=== PATIENT | female | born 1995 | race Caucasian/White ===

== ENCOUNTER 2016-12-07 18:42 | Emergency (ER) | payer BC ==
[2016-12-07] MEDS ORDERED: AMOXICILLIN 250 MG CAPSULE PO ONE (19:31)
--- NOTE | 2016-12-07 19:39 | ER NURSING DOCUMENTATION ---
Nurse's Notes [facility] Name:Scooter Herrera Age:21 yrs Sex:Female :1995 Arrival Date:12/07/2016 Time:18:42 Bed3 Private MD: Diagnosis:Strep Sore Throat Presentation: 12/07 18:51 Acuity: EMYM 4 sc1 19:21 Presenting complaint: Patient states: sorethroat since yesterday. Transition of care: sc1 patient was not received from another setting of care. Notified ED Physician of patient's arrival and CC Dr. Rosenthal notified. 19:21 Method Of Arrival: Private Vehicle sc1 Triage Assessment: 19:22 General: Appears in no apparent distress, well developed, well nourished, well groomed, sc1 Behavior is cooperative, pleasant. Pain: Complains of pain in throat. EENT: Throat is reddened has patchy exudate. Historical: - Allergies: No known drug Allergies; - Home Meds: 1. None - PMHx: None; - PSHx: None; - Ebola Screening: : Patient negative for fever greater than or equal to 101.5 degrees Fahrenheit, and additional compatible Ebola Virus Disease symptoms. Patient denies exposure to infectious person. Patient denies travel to an Ebola-affected area in the 21 days before illness onset. No symptoms or risks identified at this time. . - Immunization history: Flu Vaccine < 1 year. - Social history: Smoking status: Patient states was never smoker of tobacco. Patient/guardian denies using alcohol, street drugs, IV drugs, marijuana. Screenin:37 Infectious Disease Risk None. Abuse screen: Denies threats or abuse. Nutritional sc1 screening: No deficits noted. Assessment: 19:37 Respiratory: Airway Respiratory effort is even, unlabored, Breath sounds are clear sc1 bilaterally. Vital Signs: 18:52 BP 136 / 78; Pulse 106; Resp 16; Temp 99.5(O); Pulse Ox 94% on R/A; Weight 61.23 kg arc (R); Height 5 ft. 4 in. (162.56 cm) (R); Pain 6/10; 18:52 Body Mass Index 23.17 (61.23 kg, 162.56 cm) arc ED Course: 18:45 Patient arrived in ED. ama 18:51 Razo, Sophia, RN is Primary Nurse. [facility] 18:51 Triage completed. [facility] 19:18 Curry Rosenthal MD is Attending Physician. cd 19:23 Notified ED Physician of patient's arrival and chief complaint. Dr. Rosenthal notified. Arm [facility] band placed on Bed in low position Call Light in Reach. Labs ordered per protocol. 19:37 Valuables Remains with patient. [facility] Administered Medications: 19:21 Drug: Amoxicillin 500 mg; Route: PO; [facility] 19:36 Follow up: Response: No adverse reaction [facility] Outcome: 19:19 Discharge ordered by MD. cd 19:36 Discharged to home ambulatory. [facility] 19:36 Condition: stable 19:36 Instructed on discharge instructions, follow up and referral plans. medication usage, Demonstrated understanding of instructions, medications, Prescriptions given X 1. 19:37 Patient left the ED. [facility] 06/ 09:30 Discharge F/U Call: Overall Care on a scale of 1-10 with 10 being the best care, you tg rate our care as: Other comments: Spoke with pt's dad. Pt is still uncomfortable. gave instructions on finding [facility], and they will return to ED if symptoms get worse or for other concerns. Signatures: Sterling Rosado RN RN Sophia Razo, REN RN [facility] Curry Rosenthal MD MD cd Yoni eLvin, Reg Reg ama Jaycee Vogel, Reg Reg arc
--- NOTE | 2016-12-07 19:39 | ER PHYSICIAN DOCUMENTATION ---
Physician Documentation [facility] Name:Scooter Herrera Age:21 yrs Sex:Female :1995 Arrival Date:12/07/2016 Time:18:42 Bed3 Private MD: Curry Pappas Disposition: 12/07/16 19:19 Discharged to Home/Self Care. Impression: Strep Sore Throat. - Condition is Good. - Discharge Instructions: PHARYNGITIS, Strep (Confirmed). - Prescriptions for Amoxicillin 875 mg Oral Tablet - take 1 tablet by ORAL route every 12 hours for 10 days; 20 tablet. - Medical Reconciliation form form. - Follow up: Private Physician; When: 7 - 10 days; Reason: Recheck today's complaints, Continuance of care. - Problem is new. - Symptoms are unchanged. - Notes: Take Ibuprofen 600mg by mouth every 6 hours for 1 - 2 days Take Tylenol 650mg by mouth every 6 hours for1 - 2 days Gargle with salt water......after you have been treated....throw away your toothbrush... Drink plenty of fluids.....2 quarts per day.... Take Amoxil 875mg by mouth every 12 hours starting tomorrow morning for 10 days.... HPI: 12/07 19:05 This 21 yrs old Female presents to ER via Private Vehicle with complaints of cd Sore Throat. 19:05 The patient presents with sore throat. The patient describes throat pain as burning, cd constant. Onset: The symptom(s)/episode began/occurred acutely, yesterday. Severity of symptoms: At their worst the symptoms were moderate, in the emergency department the symptoms are unchanged. Modifying factors: The symptoms are alleviated by nothing, the symptoms are aggravated by swallowing, Patient's oral intake status: good unaware of sick contact. Associated signs and symptoms: Pertinent positives: fever. Historical: - Allergies: No known drug Allergies; - Home Meds: 1. None - PMHx: None; - PSHx: None; - Ebola Screening: : Patient negative for fever greater than or equal to 101.5 degrees Fahrenheit, and additional compatible Ebola Virus Disease symptoms. Patient denies exposure to infectious person. Patient denies travel to an Ebola-affected area in the 21 days before illness onset. No symptoms or risks identified at this time. . - Immunization history: Flu Vaccine < 1 year. - Social history: Smoking status: Patient states was never smoker of tobacco. Patient/guardian denies using alcohol, street drugs, IV drugs, marijuana. ROS: 19:22 Constitutional: Positive for fever, Negative for body aches, chills, poor PO intake. cd 19:22 ENT: Positive for sore throat, Negative for ear pain, rhinorrhea, sinus congestion, sinus pain. 19:22 Neck: Negative for pain with movement, pain at rest. 19:22 Cardiovascular: Negative for chest pain. 19:22 Skin: Negative for rash. 19:22 All other systems are negative. Exam: 19:22 Constitutional: The patient appears alert, awake, non-diaphoretic, non-toxic, well cd developed, well nourished. 19:22 ENT: Mouth: is normal, Posterior pharynx: Airway: normal, no evidence of obstruction, Tonsils: bilaterally enlarged, with erythema, with exudate, peritonsillar mass, is not appreciated, pooling of secretions, is not appreciated. 19:22 Neck: ROM/movement: nuchal rigidity, is not appreciated. 19:22 Respiratory: Respirations: normal, no acute changes, Breath sounds: are normal, clear throughout. Vital Signs: 18:52 BP 136 / 78; Pulse 106; Resp 16; Temp 99.5(O); Pulse Ox 94% on R/A; Weight 61.23 kg arc (R); Height 5 ft. 4 in. (162.56 cm) (R); Pain 6/10; 18:52 Body Mass Index 23.17 (61.23 kg, 162.56 cm) arc MDM: 19:05 Data interpreted: Pulse oximetry: on room air is 94 %. Interpretation: normal. cd Counseling: I had a detailed discussion with the patient and/or guardian regarding: the historical points, exam findings, and any diagnostic results supporting the discharge/admit diagnosis, lab results, the need for outpatient follow up, for a recheck, with the patient's primary care provider, to return to the emergency department if symptoms worsen or persist or if there are any questions or concerns that arise at home. 19:18 Patient medically screened. cd 19:22 Differential diagnosis: group A strep tonsillitis, mononucleosis, tonsillitis, upper cd respiratory infection. 19:30 Data reviewed: vital signs, nurses notes, old medical records, and as a result, I will cd discharge patient, administer antibiotics Amoxicillin. 12/07 19:07 Order name: RAPID STREP SCRN CUL IF NEG; Complete Time: 20:28 EDMS 12/07 20:28 Interpretation: Abnormal: RAPID STREP SCRN CUL IF NEG POSITIVE; Positive Strep Screen. cd Dispensed Medications: 19:21 Drug: Amoxicillin 500 mg; Route: PO; in1 19:36 Follow up: Response: No adverse reaction sc1 Signatures: Sophia Razo RN RN sc1 Curry Rosenthal MD MD cd Meyer, John, MD MD
== END 2016-12-07 19:38 | disposition home or self-care (01) ==
LOC: ER 18:42
DX: J02.0 Streptococcal pharyngitis (principal)
CPT/HCPCS: 86403; 99283

== ENCOUNTER 2016-12-08 12:28 | Emergency (ER) | payer BC ==
--- NOTE | 2016-12-08 13:03 | ER NURSING DOCUMENTATION ---
Nurse's Notes [facility] Name:Scooter Herrera Age:21 yrs Sex:Female :1995 Arrival Date:12/08/2016 Time:12:28 Bed1 Private MD: Diagnosis:Strep Sore Throat Presentation: 12/08 12:34 Presenting complaint: Patient states: continues to have increasing pain. Transition of lp care: Home. 12:34 Acuity: EMMY 3 lp 12:34 Method Of Arrival: Private Vehicle lp Triage Assessment: 12:38 General: Appears uncomfortable, Behavior is cooperative. Pain: Complains of pain in tg left aspect of posterior pharynx and right aspect of posterior pharynx. EENT: Throat is reddened has patchy exudate has enlarged tonsils bilaterally with gag reflex present, Denies difficulty swallowing. Cardiovascular: Capillary refill. Derm: Skin is pink, warm & dry. Historical: - Allergies: No known drug Allergies; - Home Meds: 1. None - PMHx: NONE; Strep Sore Throat (December 07, 2016); - PSHx: NONE; - Tetanus: < 10 years. - Ebola Screening: : Patient negative for fever greater than or equal to 101.5 degrees Fahrenheit, and additional compatible Ebola Virus Disease symptoms. Patient denies exposure to infectious person. Patient denies travel to an Ebola-affected area in the 21 days before illness onset. . - Immunization history: Flu Vaccine unknown. - Social history: Smoking status: Patient states was never smoker of tobacco. Screenin:40 Infectious Disease Risk Unable to Obtain. Abuse screen: Denies threats or abuse. Denies tg injuries from another. Nutritional screening: No deficits noted. Assessment: 12:41 Respiratory: Airway is patent Respiratory effort is even, unlabored, tg 12:42 Reassessment: Pt has had 2 doses of amoxicillin (one yesterday, one this AM). tg Vital Signs: 12:33 BP 131 / 82; Pulse 98; Resp 16; Temp 98.2(O); Pulse Ox 95% on R/A; Weight 61.23 kg (R); arc Height 5 ft. 3 in. (160.02 cm) (R); Pain 6/10; 12:33 Body Mass Index 23.91 (61.23 kg, 160.02 cm) arc ED Course: 12:30 Patient arrived in ED. ama 12:34 Maria A Vogel, RN is Primary Nurse. lp 12:34 Triage completed. lp 12:40 Arm band placed on. tg 12:40 Valuables Remains with patient. tg 12:47 Curry Rosenthal MD is Attending Physician. cd Administered Medications: No medications were administered Outcome: 12:49 Discharge ordered by MD. cd 12:53 Discharged to home ambulatory. tg 12:53 Condition: stable 12:53 Discharge Assessment: Patient awake, alert and oriented x 3. No cognitive and/or functional deficits noted. Patient verbalized understanding of disposition instructions. 12:53 Instructed on discharge instructions, follow up and referral plans. medication usage, Prescriptions given X 1. 13:03 Patient left the ED. tg 06 17:15 Discharge F/U Call: Unable to reach: left voicemail: eduar Signatures: Sterling Rosado RN RN Aviva Espinoza RN RN Maria A Russell, RN Curry Savage lp, MD MD cd Yoni Levin, Reg Reg ama Jaycee Vogel, Reg Reg arc
--- NOTE | 2016-12-08 13:03 | ER PHYSICIAN DOCUMENTATION ---
Physician Documentation [facility] Name:Scooter Herrera Age:21 yrs Sex:Female :1995 Arrival Date:12/08/2016 Time:12:28 Bed1 Private MD: Curry Pappas Disposition: 12/08/16 12:49 Discharged to Home/Self Care. Impression: Strep Sore Throat. - Condition is Good. - Discharge Instructions: PHARYNGITIS, Strep (Confirmed). - Prescriptions for Prednisone 20 mg Oral Tablet - take 2 tablet by ORAL route once daily for 5 days; 10 tablet. - Medical Reconciliation form form. - Follow up: Private Physician; When: 7 - 10 days; Reason: Recheck today's complaints, Continuance of care. - Problem is new. - Symptoms are resolved. - Notes: Continue your Amoxicillin 875mg by mouth every 12 hours until gone. Gargle with salt water twice a day. Use Chloroseptic [place] when needed for throat pain.. Drink smoothies and 2 quarts of water every day to stay hydrated. Take Prednisone 40mg by mouth every day for 5 days then stop. Take Tylenol 500mg by mouth every 6 hours with food for 2 days Take Ibuprofen 400mg by mouth every 6 hours for 2 days with the Tylenol HPI: 12/08 12:35 This 21 yrs old Female presents to ER via Private Vehicle with complaints of cd Sore Throat. 12:35 The patient presents with sore throat. The patient describes throat pain as burning, cd constant. Onset: The symptom(s)/episode began/occurred acutely, 2 day(s) ago. Severity of symptoms: At their worst the symptoms were moderate, in the emergency department the symptoms are unchanged. Associated signs and symptoms: Pertinent negatives chills, earache, fever, headache, nausea, rhinorrhea. The patient has been recently seen by a physician: Dr. Rosenthal , in [facility] ED, yesterday, with similar presenting complaints, and apparently given a diagnosis of RSS + Strep throat, Placed on Amoxil. She was given her first dose of 500 mg last night. She took her second dose of 975 mg this morning. She is not better yet, so she returned to the ED., lab tests were done, The patient has been recently seen at the [facility] Emergency Department. Historical: - Allergies: No known drug Allergies; - Home Meds: 1. None - PMHx: NONE; Strep Sore Throat (December 07, 2016); - PSHx: NONE; - Tetanus: < 10 years. - Ebola Screening: : Patient negative for fever greater than or equal to 101.5 degrees Fahrenheit, and additional compatible Ebola Virus Disease symptoms. Patient denies exposure to infectious person. Patient denies travel to an Ebola-affected area in the 21 days before illness onset. . - Immunization history: Flu Vaccine unknown. - Social history: Smoking status: Patient states was never smoker of tobacco. ROS: 12:40 Constitutional: Negative for chills, fever, poor PO intake. cd 12:40 ENT: Positive for sinus congestion, sore throat, Negative for ear pain, rhinorrhea, sinus pain. 12:40 All other systems are negative. Exam: 12:40 Constitutional: The patient appears alert, awake, non-diaphoretic, non-toxic, well cd developed, well nourished. 12:40 ENT: TM's: are normal, Mouth: is normal, Posterior pharynx: Airway: normal, no evidence of obstruction, Tonsils: bilaterally enlarged, with erythema, with exudate, Uvula: normal, midline, peritonsillar mass, noted bilaterally, pooling of secretions, is not appreciated. 12:40 Neck: ROM/movement: is normal, Meningeal signs: are not present, Lymph nodes: no appreciated lymphadenopathy. 12:40 Respiratory: Respirations: normal, Breath sounds: are normal, clear throughout. Vital Signs: 12:33 BP 131 / 82; Pulse 98; Resp 16; Temp 98.2(O); Pulse Ox 95% on R/A; Weight 61.23 kg (R); arc Height 5 ft. 3 in. (160.02 cm) (R); Pain 6/10; 12:33 Body Mass Index 23.91 (61.23 kg, 160.02 cm) arc MDM: 12:45 Data reviewed: vital signs, nurses notes, old medical records, and as a result, I will cd discharge patient, administer steroids, prednisone. Data interpreted: Pulse oximetry: on room air is 95 %. Interpretation: normal. Counseling: I had a detailed discussion with the patient and/or guardian regarding: the historical points, exam findings, and any diagnostic results supporting the discharge/admit diagnosis, lab results, the need for outpatient follow up, for a recheck, with the patient's primary care provider, to return to the emergency department if symptoms worsen or persist or if there are any questions or concerns that arise at home. 12:47 Patient medically screened. cd Dispensed Medications: No medications were administered Signatures: Sterling Rosado RN RN tg Maria A Vogel RN RN lp Curry Rosenthal MD MD cd
== END 2016-12-08 13:03 | disposition home or self-care (01) ==
LOC: ER 12:28
DX: J02.0 Streptococcal pharyngitis (principal)
CPT/HCPCS: 99282